=== PATIENT | female | born 1955 | race Caucasian/White ===

== ENCOUNTER 2019-01-27 09:56 | Inpatient (IN) | payer OTHER ==
[2019-01-27 11:40] LABS: ADD MAN DIFF? NO
[2019-01-27 11:42] LABS: WHITE BLOOD COUNT 5.6 10^3/ul (4.8-10.8)
[2019-01-27 11:42] LABS: BASOPHIL # 0.1 10^3/ul (0.0-0.1); BASOPHILS % 1.1 % (0.0-2.0); EOSINOPHILS # 0.2 10^3/ul (0.0-0.5); HEMATOCRIT 38.1 % (37.0-47.0); HEMOGLOBIN 13.1 g/dl (12.0-16.0); LYMPHOCYTES # 1.5 10^3/ul (0.8-2.9); LYMPHOCYTES % 26.2 % (15.0-51.0); MEAN CORPUSCULAR HEMOGLOBIN 31.4 pg (29.0-33.0); MEAN CORPUSCULAR HGB CONC 34.4 g/dl (32.0-37.0); MEAN CORPUSCULAR VOLUME 91.4 fl (82.0-101.0); MEAN PLATELET VOLUME 9.9 fl (7.4-10.4); MONOCYTE # 0.4 10^3/ul (0.3-0.9); MONOCYTES % 6.4 % (0.0-11.0); NEUTROPHIL # 3.5 10^3/ul (1.6-7.5); NEUTROPHILS % 62.8 % (39.0-77.0); PLATELET COUNT 202 10^3/UL (140-415); RED BLOOD COUNT 4.17 10^6/ul (4.20-5.40); RED CELL DISTRIBUTION WIDTH 13.2 % (11.5-14.5)
[2019-01-27 12:00] LABS: ANION GAP 12 (5-13); BLOOD UREA NITROGEN 14 mg/dl (7-20); CALCIUM 10.3 mg/dl (8.4-10.2); CARBON DIOXIDE 34 mmol/L (21-31); CHLORIDE 91 mmol/L (97-110); CHOL/HDL RATIO 6.7 RATIO; CHOLESTEROL 309 mg/dl (100-200); CREATININE 1.21 mg/dl (0.44-1.00); Estimated GFR 45 mL/min (>60); GLUCOSE 111 mg/dl (70-220); HDL CHOLESTEROL 46 mg/dl (35-98); LDL CHOLESTEROL,CALCULATED 207 mg/dl; PROTIME 12.3 Sec (11.9-14.9); SODIUM 137 mmol/L (135-144); TRIGLYCERIDES 280 mg/dl (0-149)
[2019-01-27 12:01] LABS: PARTIAL THROMBOPLASTIN TIME 43.6 Sec (23.0-35.0)
[2019-01-27 12:11] LABS: HEMOGLOBIN A1C 6.2 % (0-5.9)
[2019-01-27 12:11] LABS: TROPONIN-I < 0.012 ng/ml (0.000-0.120)
[2019-01-27] MEDS ORDERED: ACETAMINOPHEN 325 MG TAB PO ×2 (13:00→13:30)
[2019-01-27] MEDS ORDERED: ONDANSETRON 4 MG INJ IV ×2 (13:00→13:30)
[2019-01-27] MEDS: ASPIRIN 325 MG TAB PO (13:22)
[2019-01-27] MEDS ORDERED: NACL 0.9% 3 ML SYG IV (13:30)
[2019-01-27] MEDS: POTASSIUM CHLORIDE 50 ML IVPB (13:55)
[2019-01-27] MEDS: POTASSIUM CHLORIDE 100 ML IVPB (14:21)
[2019-01-27] MEDS: SOD CHLORIDE 0.9% 1,000 ML IV (16:00)
[2019-01-27 16:49] LABS: CREATINE KINASE 1314 IU/L (23-200)
[2019-01-27 16:59] LABS: UR CLARITY CLEAR (CLEAR); UR COLOR STRAW (YELLOW); URINE SPECIFIC GRAVITY (Dip) 1.005 (1.003-1.030)
[2019-01-27 17:00] LABS: B-TYPE NATRIURETIC PEPTIDE 37 PG/ML (0-125)
[2019-01-27 17:00] LABS: ADD UMIC YES; UR ASCORBIC ACID NEGATIVE (NEGATIVE); UR BILIRUBIN (Dip) NEGATIVE (NEGATIVE); UR BLOOD (Dip) NEGATIVE (NEGATIVE); UR GLUCOSE (Dip) NEGATIVE (NEGATIVE); UR KETONES (Dip) NEGATIVE (NEGATIVE); UR LEUKOCYTE ESTERASE (Dip) 2+ Leu/ul (NEGATIVE); UR NITRITE (Dip) NEGATIVE (NEGATIVE); UR TOTAL PROTEIN (Dip) 1+ mg/dl (NEGATIVE); UR UROBILINOGEN (Dip) 0.2 E.U./dL mg/dL (NEGATIVE); URINE PH (Dip) 8 (5.0-9.0)
[2019-01-27 17:03] LABS: CK INDEX 0.9; TROPONIN-I < 0.012 ng/ml (0.000-0.120)
[2019-01-27 17:12] LABS: FREE T4 (FREE THYROXINE) < 0.07 ng/dl (0.78-2.44)
[2019-01-27 17:12] LABS: UR BACTERIA FEW /HPF (NONE SEEN); UR RBC 1 /HPF (0-5); UR WBC 2 /HPF (0-5)
[2019-01-27 17:13] LABS: AMPHETAMINE/METHAMPHETAMINE Negative (NEGATIVE); BARBITURATES Negative (NEGATIVE); BENZODIAZEPINES Negative (NEGATIVE); CANNABINOIDS Negative (NEGATIVE); COCAINE Negative (NEGATIVE); OPIATES Negative (NEGATIVE)
[2019-01-27] MEDS: ATORVASTATIN 80 MG TAB PO (21:05)
[2019-01-27] MEDS: MECLIZINE 12.5 MG TAB PO (21:05)
[2019-01-28] MEDS: METHIMAZOLE 5 MG TAB PO ×2 (03:18→08:28)
[2019-01-28 05:54] LABS: ADD MAN DIFF? NO
[2019-01-28 06:00] LABS: WHITE BLOOD COUNT 6.8 10^3/ul (4.8-10.8)
[2019-01-28 06:00] LABS: BASOPHIL # 0.1 10^3/ul (0.0-0.1); EOSINOPHILS # 0.3 10^3/ul (0.0-0.5); EOSINOPHILS % 4.7 % (0.0-7.0); HEMOGLOBIN 13.5 g/dl (12.0-16.0); LYMPHOCYTES # 2.1 10^3/ul (0.8-2.9); LYMPHOCYTES % 31.1 % (15.0-51.0); MEAN CORPUSCULAR HEMOGLOBIN 31.7 pg (29.0-33.0); MEAN CORPUSCULAR HGB CONC 34.6 g/dl (32.0-37.0); MEAN CORPUSCULAR VOLUME 91.5 fl (82.0-101.0); MEAN PLATELET VOLUME 10.1 fl (7.4-10.4); MONOCYTE # 0.6 10^3/ul (0.3-0.9); MONOCYTES % 8.1 % (0.0-11.0); NEUTROPHIL # 3.7 10^3/ul (1.6-7.5); PLATELET COUNT 204 10^3/UL (140-415); RED BLOOD COUNT 4.26 10^6/ul (4.20-5.40); RED CELL DISTRIBUTION WIDTH 13.2 % (11.5-14.5)
[2019-01-28 06:20] LABS: CHOL/HDL RATIO 7.2 RATIO; HDL CHOLESTEROL 42 mg/dl (35-98); LDL CHOLESTEROL,CALCULATED 203 mg/dl; TRIGLYCERIDES 294 mg/dl (0-149)
[2019-01-28 06:20] LABS: CHOLESTEROL 304 mg/dl (100-200)
[2019-01-28 06:33] LABS: CREATINE KINASE 1136 IU/L (23-200)
[2019-01-28 06:34] LABS: TROPONIN-I < 0.012 ng/ml (0.000-0.120)
[2019-01-28 07:04] LABS: MAGNESIUM 2.2 mg/dl (1.7-2.5)
[2019-01-28 07:04] LABS: PHOSPHORUS 3.7 mg/dl (2.5-4.9)
[2019-01-28 07:05] LABS: ANION GAP 12 (5-13); BLOOD UREA NITROGEN 15 mg/dl (7-20); CARBON DIOXIDE 28 mmol/L (21-31); CHLORIDE 99 mmol/L (97-110); CREATININE 1.25 mg/dl (0.44-1.00); Estimated GFR 43 mL/min (>60); GLUCOSE 101 mg/dl (70-220); POTASSIUM 3.2 mmol/L (3.5-5.1); SODIUM 139 mmol/L (135-144)
[2019-01-28] MEDS: MECLIZINE 12.5 MG TAB PO ×3 (08:28→20:48)
[2019-01-28] MEDS: ASPIRIN 81 MG TAB PO (08:28)
[2019-01-28] MEDS: ENOXAPARIN 40 MG/0.4 ML SYG SC (08:44)
[2019-01-28] MEDS: SOD CHLORIDE 0.9% 1,000 ML IV (14:30)
[2019-01-28] MEDS: AMLODIPINE 2.5 MG TAB PO (14:37)
[2019-01-28 15:08] LABS: CREATINE KINASE 1008 IU/L (23-200)
[2019-01-28 15:20] LABS: CK INDEX 0.8; CK-MB 7.96 ng/ml (0.0-2.4); TROPONIN-I < 0.012 ng/ml (0.000-0.120)
[2019-01-28] MEDS ORDERED: LEVOTHYROXINE 500 MCG VIAL IV (16:00)
[2019-01-28] MEDS: POTASSIUM CHLORIDE (SR) 20 MEQ TAB PO (16:19)
[2019-01-28] MEDS: LEVOTHYROXINE 100 MCG VIAL IV (16:22)
[2019-01-28] MEDS: LEVOTHYROXINE 200 MCG VIAL IV (16:22)
[2019-01-28 19:53] LABS: CREATINE KINASE 1010 IU/L (23-200)
[2019-01-28 20:08] LABS: CK INDEX 0.8; CK-MB 7.93 ng/ml (0.0-2.4); TROPONIN-I < 0.012 ng/ml (0.000-0.120)
[2019-01-29] MEDS: hydrALAzine 20 MG INJ IV (00:39)
[2019-01-29 03:01] LABS: CREATINE KINASE 978 IU/L (23-200)
[2019-01-29 03:10] LABS: CK INDEX 0.8; CK-MB 7.71 ng/ml (0.0-2.4); TROPONIN-I < 0.012 ng/ml (0.000-0.120)
[2019-01-29] MEDS: SOD CHLORIDE 0.9% 1,000 ML IV (04:05)
[2019-01-29] MEDS: LEVOTHYROXINE 150 MCG TAB PO (05:19)
[2019-01-29 06:15] LABS: ADD MAN DIFF? NO
[2019-01-29 06:18] LABS: WHITE BLOOD COUNT 6.4 10^3/ul (4.8-10.8)
[2019-01-29 06:18] LABS: BASOPHIL # 0.1 10^3/ul (0.0-0.1); BASOPHILS % 1.1 % (0.0-2.0); EOSINOPHILS # 0.4 10^3/ul (0.0-0.5); EOSINOPHILS % 5.6 % (0.0-7.0); HEMATOCRIT 39.1 % (37.0-47.0); HEMOGLOBIN 13.2 g/dl (12.0-16.0); LYMPHOCYTES # 2.2 10^3/ul (0.8-2.9); LYMPHOCYTES % 34.4 % (15.0-51.0); MEAN CORPUSCULAR HEMOGLOBIN 31.3 pg (29.0-33.0); MEAN CORPUSCULAR HGB CONC 33.8 g/dl (32.0-37.0); MEAN CORPUSCULAR VOLUME 92.7 fl (82.0-101.0); MEAN PLATELET VOLUME 10.3 fl (7.4-10.4); MONOCYTE # 0.5 10^3/ul (0.3-0.9); MONOCYTES % 7.9 % (0.0-11.0); NEUTROPHIL # 3.3 10^3/ul (1.6-7.5); NEUTROPHILS % 50.7 % (39.0-77.0); PLATELET COUNT 193 10^3/UL (140-415); RED BLOOD COUNT 4.22 10^6/ul (4.20-5.40); RED CELL DISTRIBUTION WIDTH 13.3 % (11.5-14.5)
[2019-01-29 06:50] LABS: ANION GAP 11 (5-13); BLOOD UREA NITROGEN 15 mg/dl (7-20); CALCIUM 9.5 mg/dl (8.4-10.2); CARBON DIOXIDE 26 mmol/L (21-31); CHLORIDE 103 mmol/L (97-110); CREATININE 1.19 mg/dl (0.44-1.00); Estimated GFR 46 mL/min (>60); GLUCOSE 107 mg/dl (70-220); POTASSIUM 3.7 mmol/L (3.5-5.1); SODIUM 140 mmol/L (135-144)
[2019-01-29 07:19] LABS: PHOSPHORUS 2.7 mg/dl (2.5-4.9)
[2019-01-29 07:19] LABS: MAGNESIUM 2.1 mg/dl (1.7-2.5)
[2019-01-29] MEDS: ASPIRIN 81 MG TAB PO (08:32)
[2019-01-29] MEDS: MECLIZINE 12.5 MG TAB PO ×2 (08:32→12:39)
[2019-01-29] MEDS: AMLODIPINE 2.5 MG TAB PO (08:33)
[2019-01-29] MEDS: ENOXAPARIN 40 MG/0.4 ML SYG SC (08:39)
[2019-01-29 11:01] LABS: CREATINE KINASE 982 IU/L (23-200)
[2019-01-29 11:12] LABS: CK INDEX 0.8; CK-MB 7.95 ng/ml (0.0-2.4); TROPONIN-I < 0.012 ng/ml (0.000-0.120)
== END 2019-01-29 15:08 | disposition home or self-care (01) | DRG 149 ==
LOC: E/R 09:56 → 6WM 12:48
DX: H81.399 Other peripheral vertigo, unspecified ear (principal); N17.9 Acute kidney failure, unspecified; M62.82 Rhabdomyolysis; I10 Essential (primary) hypertension; E05.90 Thyrotoxicosis, unspecified without thyrotoxic crisis or storm; E78.5 Hyperlipidemia, unspecified; E87.6 Hypokalemia; R73.03 Prediabetes; E03.9 Hypothyroidism, unspecified; Z98.51 Tubal ligation status; Z79.82 Long term (current) use of aspirin
CPT/HCPCS: 36415; 70450; 70551; 70553; 71045; 76775; 80048; 80061; 80307; 81001; 82550; 82553; 82962; 83036; 83735; 83880; 84100; 84439; 84443; 84484; 85025; 85610; 85730; 87086; 93005; 93306; 93880; 97162; 99291-25